=== PATIENT | male | born 1980 | race Hispanic/Latino ===

== ENCOUNTER 2017-07-02 21:46 | Emergency (ER) | payer OTHER ==
[2017-07-02 22:11] VITALS: TEMP 98.2
[2017-07-02] MEDS ORDERED: Sodium Chloride 0.9% 1,000 ML IV STA (22:23)
--- NOTE | 2017-07-02 22:33 | ED PDOC ---
Arrival/HPI <Sotero Lemos - Last Filed: 07/02/17 23:39> - History of Present Illness Time/Duration: Other (at around 2 PM) Symptom Course: Intermittent Quality: Pressure, Burning Severity Level: 8 Activities at Onset: Other (coughing) <Kyrie Chen - Last Filed: 07/03/17 01:28> - General Chief Complaint: Abdominal Pain Time Seen by Provider: 07/02/17 21:52 - History of Present Illness Narrative History of Present Illness (Text): 07/02/17 22:24 This is a 37 year old male with PMH ventral abdominal hernia who presents for evaluation of abdominal pain. Patient was diagnosed with the hernia about 2-3 months ago. Patient states that he elected to hold off on the surgery because he was not happy with the expected recovery time. Patient states that he normally does not experience pain with his reducible hernia; however, today he experienced pain for the first time at around 2PM. Patient states that he was coughing when it occurred. Patient denies changes in diet or stool character. Patient did not eat prior to the episode of pain but states that he had a bowel movement afterwards which was normal. Patient states that lying down flat alleviates pain and coughing will exacerbate it. PMH: Ventral hernia PSH: Unspecified nasal surgery in December 2016 Allergies: NKDA Social: Denies tobacco, alcohol, drugs. Family Hx: Denies (Kyrie Chen) Past Medical History - Provider Review Nursing Documentation Reviewed: Yes - Gastrointestinal Other/Comment: States he has a hernia - Psychiatric Hx Substance Use: No <GustavoKyrie S - Last Filed: 07/03/17 01:28> Family/Social History - Physician Review Nursing Documentation Reviewed: Yes Family/Social History: No Known Family HX Smoking Status: n Hx Alcohol Use: No Hx Substance Use: No <GustavoKyrie S - Last Filed: 07/03/17 01:28> Allergies/Home Meds <Aminta,Sotero - Last Filed: 07/02/17 23:39> <GustavoKyrie Glnyn - Last Filed: 07/03/17 01:28> Allergies/Adverse Reactions: Allergies No Known Allergies Allergy (Verified 07/02/17 21:59) Home Medications: Home Meds Medication Instructions Recorded Confirmed No Known Home Med 07/02/17 07/02/17 Review of Systems - Review of Systems Constitutional: Normal Eyes: Normal ENT: Normal Respiratory: Cough (dry) Cardiovascular: Normal Gastrointestinal: Abdominal Pain (keyana-umbilical). absent: Stool Changes, Constipation, Diarrhea, Nausea, Vomiting Genitourinary Male: Normal Musculoskeletal: Normal Skin: Normal Neurological: Normal Endocrine: Normal Hemo/Lymphatic: Normal Psychiatric: Normal <Kyrie Chen - Last Filed: 07/03/17 01:28> Physical Exam Vital Signs Reviewed: Yes Temperature: Afebrile Pulse: Regular Respiratory Rate: Normal Appearance: Positive for: Well-Appearing Pain Distress: Mild Mental Status: Positive for: Alert and Oriented X 3 - Systems Exam Head: Present: Atraumatic, Normocephalic Pupils: Present: PERRL Extroacular Muscles: Present: EOMI Conjunctiva: Present: Normal Mouth: Present: Moist Mucous Membranes Neck: Present: Normal Range of Motion Respiratory/Chest: Present: Clear to Auscultation, Good Air Exchange. No: Accessory Muscle Use Cardiovascular: Present: Regular Rate and Rhythm, Normal S1, S2 Abdomen: Present: Normal Bowel Sounds, Hernias (reducible hernia around the umbilicus). No: Tenderness, Distention, Guarding Upper Extremity: Present: Normal Inspection, NORMAL PULSES. No: Edema Lower Extremity: Present: Normal Inspection, NORMAL PULSES. No: Edema, CALF TENDERNESS Neurological: Present: GCS=15, CN II-XII Intact Skin: Present: Warm, Dry, Other (stye right eyelid) Psychiatric: Present: Alert, Oriented x 3 <Kyrie Chen - Last Filed: 07/03/17 01:28> Vital Signs Temp Pulse Resp BP Pulse Ox 07/02/17 21:55 98.2 F 76 18 169/82 H 99 Medical Decision Making - Lab Interpretations I have reviewed the lab results: Yes <Sotero Lemos - Last Filed: 07/02/17 23:39> <Kyrie Chen - Last Filed: 07/03/17 01:28> ED Course and Treatment: Impression: Pt seen and evaluated with medical director/head team physician. Pt, whose past medical history includes ventral hernia, who presented for abdominal pain, worse with coughing since 14:00. Aware and agree with clinical findings, plan, and management. Plan: -- CT Abdomen and Pelvis with IV contrast -- Labs, lipase -- IV fluids (Sotero Lemos) 07/02/17 22:36 CBC, CMP, NS 1L bolus, CT abdomen/pelvis w/ IV contrast 07/03/17 01:18 CT abdomen was done without IV contrast due to loss of IV access: FINDINGS: The liver, gallbladder, adrenals and pancreas appear grossly normal on this non-contrast study. There is a round 3.3 cm hypoattenuating lesion in the spleen with adjacent curvilinear calcifications. Recommend followup to assess for stability assuming there are no priors. No perinephric stranding. No hydronephrosis. No obstructing calculi. Sigmoid diverticulosis. A normal appendix is identified images 117 through 122. There is an umbilical fat hernia without significant stranding to suggest incarceration. There is stranding in the fat of the left anterior pelvis images 107 through 132 of uncertain etiology. The adjacent small bowel loops and the adjacent colon appear normal. There is no rounded fat density to suggest epiploic appendagitis. It may represent a focal area of mesenteric inflammation. This could be a chronic finding as well. Recommend clinical correlation with regards to symptoms in this region. Patient discharged home with instructions to follow up with his PMD and surgeon. Patient made aware of lesion in the spleen and instructed to follow up about that in addition to his hernia. (Kyrie Chen) - Lab Interpretations Lab Results: 07/02/17 22:40 07/02/17 22:40 Lab Results 07/02/17 22:40: Sodium 142, Potassium 4.2, Chloride 105, Carbon Dioxide 24, Anion Gap 17, BUN 20, Creatinine 1.2, Est GFR ( Amer) > 60, Est GFR (Non- Af Amer) > 60, Random Glucose 115 H, Calcium 9.2, Total Bilirubin 0.7, AST 52, ALT 65 H, Alkaline Phosphatase 75, Total Protein 7.2, Albumin 4.3, Globulin 2.9 , Albumin/Globulin Ratio 1.5, Lipase 230 07/02/17 22:40: WBC 7.3, RBC 5.53, Hgb 16.9, Hct 47.8, MCV 86.4, MCH 30.6, MCHC 35.4, RDW 12.9, Plt Count 300, MPV 8.9, Gran % 61.7, Lymph % (Auto) 27.7, [place] % (Auto) 8.4 H, Eos % (Auto) 1.9, Baso % (Auto) 0.3, Gran # 4.47, Lymph # 2.0, [place] # 0.6, Eos # 0.1, Baso # 0.02 - RAD Interpretation Radiology Orders: 07/02/17 22:23 ABDOMEN & PELVIS [ABD & PELVIS IV CONTRAST ONLY] [CT] Stat - Medication Orders Current Medication Orders: Discontinued Medications Sodium Chloride (Sodium Chloride 0.9%) 1,000 mls @ 999 mls/hr IV .Q1H1M STA Stop: 07/02/17 23:23 Last Admin: 07/02/17 22:55 Dose: 999 mls/hr Iohexol (Omnipaque 300 100 Ml) Confirm Administered Dose 100 ml IJ .STK-MED ONE Stop: 07/02/17 23:14 - PA / MANUFACTURERS SERVICE REPRESENTATIVE / Resident Statement / has reviewed & agrees with the documentation as recorded. / has examined the patient and agrees with the treatment plan. <Sotero Lemos - Last Filed: 07/02/17 23:39> Disposition/Present on Arrival <Sotero Lemos - Last Filed: 07/02/17 23:39> - Present on Arrival Any Indicators Present on Arrival: No History of DVT/PE: No History of Uncontrolled Diabetes: No Urinary Catheter: No History of Decub. Ulcer: No History Surgical Site Infection Following: None - Disposition Have Diagnosis and Disposition been Completed?: Yes Disposition Time: 01:15 <GustavoKyrie S - Last Filed: 07/03/17 01:28> - Disposition Diagnosis: Umbilical hernia Disposition: HOME/ ROUTINE Patient Problems: Current Active Problems Problem Status Onset Umbilical hernia Acute Condition: STABLE Additional Instructions: There was a 3.3 cm lesion on your spleen. Please follow up with your primary doctor and your surgeon to check another CT scan. Please follow up with Dr. Wolf within 1 week. Please follow up with your surgeon in regards to surgery for your abdominal hernia. If there are any new or worsening symptoms, please return to the emergency room. Referrals: PCP,NO [Primary Care Provider] - Follow up with primary Maycol Wolf MD [Staff Provider] - Follow up with primary Forms: [employer] (Bel[place]ian)
[2017-07-02 23:01] LABS: BASO # 0.02 K/mm3 (0.0-2.0); BASO % 0.3 % (0.0-3.0); EOS # 0.1 (0.0-0.7); EOS % 1.9 % (1.5-5.0); GRAN # 4.47 (1.4-6.5); GRAN % 61.7 % (50.0-68.0); HEMATOCRIT 47.8 % (42.0-52.0); LYMPH % 27.7 % (22.0-35.0); MEAN CELL VOLUME 86.4 fl (80.0-105.0); MEAN CORPUSCULAR HEMOGLOBIN 30.6 pg (25.0-35.0); MEAN CORPUSCULAR HGB CONC 35.4 g/dl (31.0-37.0); MEAN PLATELET VOLUME 8.9 fl (7.0-11.0); MONO # 0.6 (0.1-0.6); MONO % 8.4 % (1.0-6.0); RED CELL DISTRIBUTION WIDTH 12.9 % (11.5-14.5); WHITE BLOOD COUNT 7.3 10^3/ul (4.5-11.0)
[2017-07-02 23:03] LABS: ALB/GLOB RATIO 1.5 (1.1-1.8); ALKALINE PHOSPHATASE 75 U/L (38-126); ALT/SGPT 65 U/L (7-56); AST/SGOT 52 U/L (17-59); BILIRUBIN,TOTAL 0.7 mg/dL (0.2-1.3); BLOOD UREA NITROGEN 20 mg/dL (7-21); CALCIUM 9.2 mg/dL (8.4-10.5); CARBON DIOXIDE 24 mmol/L (21-33); CHLORIDE 105 mmol/L (98-107); GFR AFRICAN-AMERICAN > 60; GLUCOSE,RANDOM 115 mg/dL (70-110); LIPASE 230 U/L (23-300); SODIUM 142 mmol/L (132-148); TOTAL PROTEIN 7.2 g/dL (5.8-8.3)
[2017-07-02 23:05] LABS: POTASSIUM 4.2 mmol/L (3.6-5.0)
[2017-07-02] MEDS ORDERED: Iohexol 300 100 ML IJ ONE (23:13)
--- NOTE | 2017-07-03 01:07 | CT ---
EXAM: CT Abdomen and Pelvis With Intravenous Contrast EXAM DATE/TIME: 07/02/2017 10:23 PM CLINICAL HISTORY: 37 years old, male; Pain; Abdominal pain; Generalized TECHNIQUE: Axial computed tomography images of the abdomen and pelvis with intravenous contrast. All CT scans at this facility use one or more dose reduction techniques, viz.: automated exposure control; ma/kV adjustment per patient size (including targeted exams where dose is matched to indication; i.e. head); or iterative reconstruction technique. Coronal and sagittal reformatted images were created and reviewed. CONTRAST: 96 mL of OMNI 350 administered intravenously. COMPARISON: No relevant prior studies available. FINDINGS: The liver, gallbladder, adrenals and pancreas appear grossly normal on this non-contrast study. There is a round 3.3 cm hypoattenuating lesion in the spleen with adjacent curvilinear calcifications. Recommend followup to assess for stability assuming there are no priors. No perinephric stranding. No hydronephrosis. No obstructing calculi. Sigmoid diverticulosis. A normal appendix is identified images 117 through 122. There is an umbilical fat hernia without significant stranding to suggest incarceration. There is stranding in the fat of the left anterior pelvis images 107 through 132 of uncertain etiology. The adjacent small bowel loops and the adjacent colon appear normal. There is no rounded fat density to suggest epiploic appendagitis. It may represent a focal area of mesenteric inflammation. This could be a chronic finding as well. Recommend clinical correlation with regards to symptoms in this region. IMPRESSION: Nonspecific mesenteric stranding anterior left pelvis as as above.
[2017-07-03 01:32] VITALS: BP 126/79; PULSE 95; RESP 16; O2SAT 95
== END 2017-07-03 01:31 | disposition home or self-care (01) ==
LOC: ED 21:46
DX: K42.9 Umbilical hernia without obstruction or gangrene (principal)
CPT/HCPCS: 74177; 80053; 83690; 85025; 99282; J7040; Q9967